=== PATIENT | male | born 1950 | race Caucasian/White ===

== ENCOUNTER 2017-07-28 10:14 | Emergency (ER) | payer OTHER, BC ==
[~2017-07-28] VITALS: Ht 188 cm; Wt 78.5 kg
[~2017-07-28 10:14] MED LIST: ERYTHROMYCIN E3.5 G1 OPHTHALMIC; LISINOPRIL10 MG; NORVASC5 M1
[2017-07-28 11:26] LABS: HEMATOCRIT 42.1 % (42.0-52.0); HEMOGLOBIN 14.1 gm/dL (14.0-18.0); MANUAL DIFF YES; MCH 29.5 pg (26.0-34.0); MCHC 33.4 g/dL (28.0-37.0); MCV 88.4 fL (80.0-100.0); PLATELET COUNT 155 thou/uL (150-400); RBC 4.77 mil/uL (4.50-6.00); RDW 13.9 % (10.5-14.5); WBC 9.5 thou/uL (4.0-11.0)
[2017-07-28 11:35] LABS: CALCIUM 9.5 mg/dL (8.5-10.1); POTASSIUM 4.3 mmol/L (3.5-5.1)
[2017-07-28 11:48] LABS: TOTAL CELL COUNT 100
[2017-07-28 11:49] LABS: ANISOCYTOSIS SLIGHT; POIKILOCYTOSIS SLIGHT
[2017-07-28 12:50] VITALS: BP 145/86
== END 2017-07-28 12:51 | disposition home or self-care (01) ==
LOC: ER 10:14
PROVIDERS: Physician Assistant
DX: M54.2 Cervicalgia (principal); M62.838 Other muscle spasm; I10 Essential (primary) hypertension

== ENCOUNTER 2019-02-07 21:41 | Emergency (ER) | payer OTHER, BC ==
[~2019-02-07] VITALS: Ht 188 cm; Wt 79.8 kg
[2019-02-07 21:46] VITALS: BP 134/89
== END 2019-02-07 22:50 | disposition home or self-care (01) ==
LOC: ER 21:41
DX: H10.9 Unspecified conjunctivitis (principal); J06.9 Acute upper respiratory infection, unspecified; I10 Essential (primary) hypertension

== ENCOUNTER → 2020-04-18 | Outpatient (CLI) | payer OTHER, BC ==
[~2020-04-18] MED LIST changes: +TRIMETHOPRIM /P10 M1 OPHTHALMIC
== END ==
LOC: RAD 11:28
PROVIDERS: ATTEND Internal Medicine Geriatric Medicine
DX: M25.78 Osteophyte, vertebrae (principal); M47.812 Spondylosis without myelopathy or radiculopathy, cervical region; M48.02 Spinal stenosis, cervical region

== ENCOUNTER → 2020-04-22 | Outpatient (CLI) | payer OTHER, BC | LOC: MRI 07:04 | PROVIDERS: ATTEND Internal Medicine Geriatric Medicine | DX: S32.010A Wedge compression fracture of first lumbar vertebra, initial encounter for closed fracture (principal); M47.816 Spondylosis without myelopathy or radiculopathy, lumbar region; M48.061 Spinal stenosis, lumbar region without neurogenic claudication; X58.XXXA Exposure to other specified factors, initial encounter; Y93.89 Activity, other specified; Y92.89 Other specified places as the place of occurrence of the external cause; Y99.8 Other external cause status ==